=== PATIENT | male | born 1925 | race Caucasian/White ===

== ENCOUNTER 2016-10-06 10:37 | Emergency (ER) | payer OTHER, BC ==
[~2016-10-06] VITALS: Ht 177.8 cm; Wt 65.8 kg
[~2016-10-06 10:37] MED LIST: ACETAMINOPHEN325 M1 PO; ARICEPT 5 MG TAB5 MG PO; ARICEPT10 M1 PO; ASPIRIN EC81 M1 PO; BISACODYL SUPP10 MG RECTAL; CALCIUM + VITA1 EAC1 PO; CELEXA 10 MG TA10 M1 PO; CELEXA20 MG PO; CIPROFLOXACIN250 M2 PO; DIPHENHIST50 MG PO; DOCUSATE SODIU100 MG PO; FOLGARD TABLET1 EAC1 PO; LISINOPRIL10 MG PO; LORAZEPAM 0.50.5 MG PO; MAGNESIUM CITR100 MG PO; METOCLOPRAMIDE10 MG PO; MI ACID LIQUID355 ML PO; NAMENDA 5 MG TAB5 M1; NAMENDA 5 MG TAB5 M1 PO; NORCO 5-325 TA1 EACH PO; OMEGA-31000 M1 PO; PERCOCET 5-3251 EACH PO; PROMETHAZINE12.5 M1 PO; SENNA PO; SEROQUEL 50 MG50 MG PO; TRAMADOL 50 MG50 MG PO; VITAMIN D3400 UNI1 PO
[2016-10-06] MEDS ORDERED: APAP500 PO (12:02)
== END 2016-10-06 12:45 | disposition home or self-care (01) ==
LOC: ER 10:37
DX: M25.552 Pain in left hip (principal); M54.5 Low back pain; I10 Essential (primary) hypertension; Z85.118 Personal history of other malignant neoplasm of bronchus and lung; Z88.8 Allergy status to other drugs, medicaments and biological substances

== ENCOUNTER 2016-10-17 13:45 | Emergency (ER) | payer OTHER, BC ==
[~2016-10-17] VITALS: Ht 177.8 cm; Wt 70.8 kg
[~2016-10-17 13:45] MED LIST changes: +APAP500 PO
== END 2016-10-17 17:30 | disposition home or self-care (01) ==
LOC: ER 13:45
DX: M54.5 Low back pain (principal); I10 Essential (primary) hypertension; Z95.1 Presence of aortocoronary bypass graft; Z98.890 Other specified postprocedural states; Z88.8 Allergy status to other drugs, medicaments and biological substances

== ENCOUNTER 2016-10-25 08:14 | Inpatient (IN) | payer OTHER, BC ==
[~2016-10-25] VITALS: Ht 177.8 cm; Wt 63.0 kg
--- NOTE | ~2016-10-25 | H ---
[facility] [place] [address] HISTORY AND PHYSICAL Name: MELCHOR OROZCO Room #: 401-I ADM IN M.R.#: [id number] Admission: 10/25/16 Attend Phys: Koby Rodriguez MD Discharge: Date of : [birth year] Report #: [id number] THIS REPORT FOR: //name// CC: Koby Calero REASON FOR PRESENTATION: The patient was sent from his nursing facility due to lethargy. HISTORY OF PRESENT ILLNESS: The history was obtained from the daughter, as she has the power of patent prosecution attorney. The patient is able to provide me with very sketchy history. He is an 89-year-old with a past medical history of colon cancer, lung mass that he refused workup for. He presented from his nursing facility feeling weak and complaining of right-sided submandibular lymph node enlargement. No fever or chills. His breathing has been okay. No chest pain or palpitation. No nausea or vomiting. He did have some decreased p.o. intake. Upon talking walking with his , it does look like that the patient has a history of colon cancer and a lung mass that he refused workup for. He also had expressed for his daughter and for his family that he is to be a DNR/DNI, and the family was willing to proceed with the hospice placement; however, this has to be arranged before sending the patient back to his facility. PAST MEDICAL AND SURGICAL HISTORY: 1. CABG. 2. CKD. 3. Multiple cancers in the past including colon cancer and lung mass. 4. Retinal tear. 5. Right eye enucleation. 6. Left hip fracture. SOCIAL HISTORY: He resides in a nursing facility. No drug or alcohol abuse. ALLERGIES: STATINS and FLOMAX. MEDICATIONS: 1. Aspirin. 2. Calcium. 3. Tylenol. 4. Celexa. 5. Aricept. REVIEW OF SYSTEMS: GENERAL: No fever or chills, but significant for weakness. CARDIOVASCULAR: No chest pain and no palpitation. PULMONARY: No hemoptysis but occasional cough. GASTROINTESTINAL: Decreased p.o. intake. GENITOURINARY: No frequency and no urgency. [facility] [address] [place] [address] HISTORY AND PHYSICAL Name: MELCHOR OROZCO Room #: 401-I [facility].#: [id number] Admission: 10/25/16 Attend Phys: Koby Rodriguez MD Discharge: Date of : [birth year] Report #: [id number] PHYSICAL EXAMINATION: GENERAL: The patient was alert and oriented, seemed to be confused. VITAL SIGNS: Blood pressure was 158/69, temperature was 36. Respiratory rate was 18 and pulse rate was 93. HEAD AND NECK: Right submandibular enlarged lymph node highly suggestive of malignancy because of characteristics. EYES: Right eye enucleated. CHEST: Decreased air entry bilaterally. CARDIOVASCULAR: Regular with no rub detected. ABDOMEN: Soft and nontender with no hepatosplenomegaly. LOWER EXTREMITIES: No edema. DATA: Laboratory values reviewed. Creatinine is at baseline. Baseline hemoglobin is 12. Images including his chest x-ray reviewed. ASSESSMENT, IMPRESSION AND PLAN: 1. Metastatic carcinoma. 2. History of colon cancer. 3. Lung mass. 4. Anemia. 5. Chronic kidney disease. 6. Disability. Discussed at length with the family. They want the patient to be a DNR/DNI and initiate the hospice care. They do not want any medications including the possibility of treating him for pneumonia. They just want him to be comfortable with p.r.n. medications for his pain, nausea and vomiting. They do not want any oxygen supplements at this point. No further workup will be initiated. We will admit for observation and counseled the hospice care team. <ELECTRONICALLY SIGNED> By: Koby Rodriguez MD 10/25/16 [id number] Koby Rodriguez MD /nt
[2016-10-25 08:15] VITALS: BP 107/63
[2016-10-25 08:48] LABS: ABSOLUTE NEUTROPHILS 4.8 thou/uL (1.4-8.2); BASOPHILS 0.5 % (0.0-2.0); EOSINOPHILS 6.5 % (0.0-3.0); HEMATOCRIT 37.3 % (42.0-52.0); HEMOGLOBIN 12.5 gm/dL (14.0-18.0); LYMPHOCYTES 13.4 % (24.0-44.0); MCH 29.9 pg (26.0-34.0); MCHC 33.4 % (28.0-37.0); MCV 89.6 fL (80.0-100.0); MONOCYTES 8.6 % (1.0-8.0); PLATELET COUNT 209 thou/uL (150-400); RBC 4.16 mil/uL (4.50-6.00); RDW 14.5 % (10.5-14.5); WBC 6.8 thou/uL (4.0-11.0)
[2016-10-25 08:50] LABS: MANUAL DIFF NO
[2016-10-25] MEDS ORDERED: APAP500 PO (08:50)
[2016-10-25 09:20] LABS: CALCIUM 9.3 mg/dL (8.5-10.1); CREATININE 1.5 mg/dL (0.6-1.3); POTASSIUM 4.4 mmol/L (3.5-5.1)
[2016-10-25 11:14] VITALS: BP 115/69
[2016-10-25 11:30] VITALS: BP 121/76
[2016-10-25 16:00] VITALS: BP 104/58
[2016-10-25 18:50] VITALS: BP 139/57
[2016-10-26 03:35] VITALS: BP 124/49
[2016-10-26 08:00] VITALS: BP 155/66
[2016-10-26 12:53] VITALS: BP 149/76
[2016-10-26 13:34] VITALS: BP 149/76
[2016-10-26 20:00] VITALS: BP 171/87
[2016-10-27 02:32] VITALS: BP 163/72
[2016-10-27 12:06] VITALS: BP 163/72
[2016-10-27] MEDS ORDERED: TRANSDERM-SCO1 PATC1 TRANSDERM (13:11)
[2016-10-27 13:47] VITALS: BP 163/72
[2016-10-27 19:05] VITALS: BP 124/68
[2016-10-28 03:05] VITALS: BP 161/82
[2016-10-28 05:09] LABS: INFLUENZA B Negative (Negative); METAPNEUMOVIRUS Negative (Negative)
[2016-10-28 08:03] VITALS: BP 132/87
[2016-10-28] MEDS ORDERED: AZITHROMYCIN 2250 MG PO (10:43)
== END 2016-10-28 13:44 | disposition hospice, home (50) | DRG 843 ==
LOC: ER 08:14 → EROBS 10:09 → 4N 10:09
PROVIDERS: Emergency Medicine
DX: D09.9 Carcinoma in situ, unspecified (principal); G93.40 Encephalopathy, unspecified; R62.7 Adult failure to thrive; Z88.8 Allergy status to other drugs, medicaments and biological substances; R09.02 Hypoxemia; Z66 Do not resuscitate; D64.9 Anemia, unspecified; N18.9 Chronic kidney disease, unspecified; I12.9 Hypertensive chronic kidney disease with stage 1 through stage 4 chronic kidney disease, or unspecified chronic kidney disease; Z95.1 Presence of aortocoronary bypass graft; Z85.118 Personal history of other malignant neoplasm of bronchus and lung; Z79.899 Other long term (current) drug therapy; Z79.82 Long term (current) use of aspirin; Z87.81 Personal history of (healed) traumatic fracture; Z85.038 Personal history of other malignant neoplasm of large intestine
CPT/HCPCS: 10790

== ENCOUNTER 2016-12-20 11:40 | Emergency (ER) | payer OTHER, BC ==
[~2016-12-20] VITALS: Ht 175.3 cm; Wt 63.5 kg
[~2016-12-20 11:40] MED LIST changes: +AZITHROMYCIN 2250 MG PO; +TRANSDERM-SCO1 PATC1 TRANSDERM
[2016-12-20] MEDS ORDERED: DEPAKOTE 250MG250 M1 PO (11:50)
[2016-12-20 12:12] LABS: CALCIUM 8.8 mg/dL (8.5-10.1); CREATININE 1.5 mg/dL (0.6-1.3); POTASSIUM 4.1 mmol/L (3.5-5.1)
[2016-12-20 12:17] LABS: ALBUMIN 3.2 g/dL (3.4-5.0); TOTAL BILIRUBIN 0.3 mg/dL (<0.1-1.0)
[2016-12-20 12:45] LABS: ATYPICAL LYMPHS 4 %; TOTAL CELL COUNT 100
[2016-12-20 12:46] LABS: ANISOCYTOSIS SLIGHT
[2016-12-20 12:48] LABS: LARGE PLATELETS OCCASIONAL; POIKILOCYTOSIS SLIGHT
[2016-12-20 12:53] LABS: HEMATOCRIT 33.5 % (42.0-52.0); HEMOGLOBIN 11.3 gm/dL (14.0-18.0); RBC 3.78 mil/uL (4.50-6.00)
[2016-12-20 12:54] LABS: MANUAL DIFF NO; MCHC 33.8 % (28.0-37.0); MCV 88.8 fL (80.0-100.0); PLATELET COUNT 187 thou/uL (150-400); RDW 15.7 % (10.5-14.5)
== END 2016-12-20 15:44 | disposition short-term general hospital (02) ==
LOC: ER 11:40
PROVIDERS: Emergency Medicine
DX: R22.1 Localized swelling, mass and lump, neck (principal); I10 Essential (primary) hypertension; N40.0 Benign prostatic hyperplasia without lower urinary tract symptoms; E78.5 Hyperlipidemia, unspecified; F03.90 Unspecified dementia, unspecified severity, without behavioral disturbance, psychotic disturbance, mood disturbance, and anxiety; I12.9 Hypertensive chronic kidney disease with stage 1 through stage 4 chronic kidney disease, or unspecified chronic kidney disease; N18.9 Chronic kidney disease, unspecified; I48.91 Unspecified atrial fibrillation; Z86.2 Personal history of diseases of the blood and blood-forming organs and certain disorders involving the immune mechanism; Z88.8 Allergy status to other drugs, medicaments and biological substances